=== PATIENT | female | born 1990 | race Caucasian/White ===

== ENCOUNTER 2021-11-09 16:42 | Inpatient (IN) | payer BC ==
[2021-11-09] MEDS ORDERED: DINOPROSTONE 10 MG INSERT.ER VAGINAL ONE (16:59)
[2021-11-09] MEDS ORDERED: BUTORPHANOL 1 MG/ML 1 ML VIAL IV PRN (16:59)
--- NOTE | 2021-11-09 17:46 | P.HPOB ---
History of Present Illness H&P Date: 11/09/21 Chief Complaint: Requested induction of labor This patient is a pleasant 30-year-old 2 para 0 female estimated date of confinement 11/11/2021 estimated gestational age 39-5/7 weeks gestation who is admitted to labor and delivery for two-stage induction of labor secondary to unfavorable cervix at term. Patient's care has been uncomplicated. There was a questionable circumvallate placenta at 20 weeks however this was revisualized per maternal- medicine and did not show this. Patient has been followed with nonstress tests regardless per [facility] recommendations. She's now requesting induction of labor at term. Review of Systems Genitourinary: Reports Menstruation: Reports amenorrhea Past Medical History Past Medical History: No Reported History History of Any Multi-Drug Resistant Organisms: None Reported Additional Past Surgical History / Comment(s): ELECTIVE 01/23/14; BRAIN TUMOR REMOVAL Past Anesthesia/Blood Transfusion Reactions: No Reported Reaction Past Psychological History: No Psychological Hx Reported Smoking Status: Never smoker Past Alcohol Use History: Occasional Past Drug Use History: None Reported - Past Family History Mother Family Medical History: No Reported History Medications and Allergies Home Medications Medication Instructions Recorded Confirmed Type Vit No.179/Iron/Folic 1 each PO DAILY 11/09/21 11/09/21 History [ Tablet] Allergies Allergy/AdvReac Type Severity Reaction Status Date / Time No Known Allergies Allergy Verified 11/09/21 16:59 Exam Vital Signs Temp Pulse Resp BP Pulse Ox 11/09/21 16:59 18 11/09/21 16:58 97.0 F L 103 H 18 130/89 98 Intake and Output 11/09/21 11/09/21 11/09/21 06:59 14:59 22:59 Other: Weight 87.997 kg - OBG Physical Exam Abdomen: bowel sounds normal, no diffuse tenderness, no bruit present, no guarding noted, no hepatomegaly, no splenomegaly, no mass Vulva: both: normal Vagina: normal moisture, no discharge Cervix: no lesion (Cervix is closed and uneffaced.), no discharge Uterus: enlarged (Fundal height 39 cm) Results labs show she is O+, rubella immune, RPR is nonreactive, hepatitis B is negative, HIV is nonreactive, Glucola was normal, group B strep was negative, most recent ultrasound showed estimated weight of 7 lbs. 0 oz. Assessment and Plan Assessment: This is a pleasant 30-year-old 2 para 0 female 39-5/7 weeks gestation who is requesting induction of labor. Plan is Cervidil placement and anticipate vaginal delivery. (1) 39 weeks gestation of Current Visit: Yes Status: Acute Code(s): Z3A.39 - 39 WEEKS GESTATION OF SNOMED Code(s): 79777858 (2) Elective induction of labor planned Current Visit: Yes Status: Acute Code(s): PBD4144 - SNOMED Code(s): 285379498
[2021-11-09] MEDS ORDERED: ONDANSETRON 4 MG/2 ML VIAL IVP PRN (19:25)
[2021-11-09] MEDS ORDERED: ONDANSETRON 4 MG TAB PO PRN (20:18)
[2021-11-10] MEDS: LACTATED RINGERS 1,000 ML IV SCH ×3 (05:00→20:50)
[2021-11-10] MEDS ORDERED: TERBUTALINE 1 MG/ML VIAL SQ PRN (05:04)
[2021-11-10] MEDS ORDERED: CARBOPROST TROMETHAMINE 250 MCG/ML 1 ML AMP IM PRN (05:04)
[2021-11-10] MEDS ORDERED: OXYTOCIN 30 UNITS/500 ML NS 30 UNIT in SALINE 1 500ML.BAG IV SCH ×2 (05:04→20:15)
[2021-11-10] MEDS ORDERED: LIDOCAINE (PF) 10 MG/ML 2 ML VIAL SQ PRN (05:04)
[2021-11-10] MEDS ORDERED: METHYLERGONOVINE 0.2 MG/ML 1 ML AMP IM PRN (05:04)
[2021-11-10] MEDS ORDERED: OXYTOCIN 10 UNIT/ML 1 ML VIAL IM PRN (05:04)
[2021-11-10 05:27] LABS: Basophils % (A) 0 %; Eosinophils # (A) 0.2 k/uL (0-0.7); Eosinophils % (A) 2 %; HCT 37.9 % (34.0-46.0); HGB 12.3 gm/dL (11.4-16.0); Lymphocytes # (A) 2.9 k/uL (1.0-4.8); Lymphocytes % (A) 31 %; MCH 27.4 pg (25.0-35.0); MCHC 32.4 g/dL (31.0-37.0); MCV 84.5 fL (80.0-100.0); Mean Platelet Volume 11.2; Monocytes # (A) 0.5 k/uL (0-1.0); Monocytes % (A) 6 %; Neutrophils # (A) 5.6 k/uL (1.3-7.7); Neutrophils % (A) 60 %; Platelet Count 183 k/uL (150-450); RBC 4.49 m/uL (3.80-5.40); RDW 13.5 % (11.5-15.5); WBC 9.2 k/uL (3.8-10.6)
[2021-11-10 05:59] LABS: Large Platelets Present
--- NOTE | 2021-11-10 05:59 | P.PN ---
Progress Note - Text Progress Note Date: 11/10/21 Cervix is 1-2 cm and thick but soft. Artificial rupture membranes done for clear fluid. heart tones are category 1. Plan now to proceed with Pitocin induction of labor.
[2021-11-10] MEDS ORDERED: fentaNYL (PF) 50 MCG/ML 5 ML AMP ONE (15:54)
[2021-11-10] MEDS ORDERED: ROPIVACAINE 5MG/ML 20ML VIAL ONE (15:54)
[2021-11-10] MEDS ORDERED: SODIUM CHLORIDE 0.9% 100 ML BAG ONE (15:54)
[2021-11-10] MEDS ORDERED: CITRIC ACID-SODIUM CITRATE 15 ML CUP PO ONE (18:53)
--- NOTE | 2021-11-10 19:03 | P.PN ---
Progress Note - Text Progress Note Date: 11/10/21 Patient's heart tones are category 1. head has not progressed beyond 0 station. Cervix is failed to dilate past 4 cm despite adequate labor. Estimated weight is greater than 8 pounds. The patient, I, and her discussed continuing with labor versus delivery by section and they wished to proceed with section. I discussed the surgery and risks and we'll proceed now.
[2021-11-10] MEDS ORDERED: OXYTOCIN 30 UNITS/500 ML NS BAG IV ONE (19:21)
[2021-11-10] MEDS ORDERED: fentaNYL (PF) 50 MCG/ML 2 ML AMP ONE (19:21)
[2021-11-10] MEDS ORDERED: ONDANSETRON 4 MG/2 ML VIAL ONE (19:21)
[2021-11-10] MEDS ORDERED: MORPHINE SULFATE (PF) 0.3 MG/0.3 ML SYR ONE (19:21)
[2021-11-10] MEDS ORDERED: ONDANSETRON 4 MG/2 ML VIAL IVP PRN (20:11)
[2021-11-10] MEDS ORDERED: NALOXONE 0.4 MG/ML 1 ML VIAL IV PRN (20:11)
[2021-11-10] MEDS ORDERED: METOCLOPRAMIDE 5 MG/ML 2 ML VIAL IVP PRN (20:11)
[2021-11-10] MEDS ORDERED: ZOLPIDEM 5 MG TAB PO PRN (20:11)
[2021-11-10] MEDS ORDERED: diphenhydrAMINE 25 MG CAP PO PRN (20:11)
[2021-11-10] MEDS ORDERED: SIMETHICONE 80 MG CHEWABLE PO PRN (20:11)
[2021-11-10] MEDS ORDERED: LANOLIN CREAM 5 GM TUBE TOPICAL PRN (20:11)
[2021-11-10] MEDS ORDERED: diphenhydrAMINE 50 MG/ML 1 ML VIAL IVP PRN (20:11)
[2021-11-10] MEDS ORDERED: HYDROmorphone PCA 10 MG/50 ML BAG IV PRN (20:30)
--- NOTE | 2021-11-10 21:16 | P.OP ---
Date of Procedure: 11/10/21 Preoperative Diagnosis: #1: 39-6/7 week intrauterine . #2: Failure to progress in labor. Postoperative Diagnosis: #1: Same. #2: Large for gestational age. Procedure(s) Performed: Primary low transverse section Anesthesia: epidural Surgeon: Joyb Fishman Pharmacy Student #1: Martha Self Estimated Blood Loss (ml): 600 Pathology: none sent Condition: stable Disposition: floor Indications for Procedure: Please see dictated H&P for intimate details of this patient's admission. Brief summary this is a pleasant 30-year-old 2 para 0 female 39-6/7 weeks gestation admitted last evening for two-stage induction of labor secondary to unfavorable cervix at term. Patient has Cervidil placed this morning she was 1- 2 cm dilated is artificial rupture membranes for clear fluid. Labor is induced with Pitocin per protocol. Patient progresses slowly and gets to approximately 4 cm. head does not descend beyond 0 station and there is failure progress despite adequate labor. At this time I had a discussion with the patient and her and we elected to proceed with section for delivery. Patient understands this procedure and risks and risks of infection, bleeding, possible injury bowel, bladder, vessels, and/or other organs. All the patient's questions are answered and a written consent is obtained. Operative Findings: This is a vigorous viable male infant Apgars 8 and 9 delivery time is 1944 hrs. is 8 lbs. 9 oz. and found to be in occiput transverse presentation. Description of Procedure: This patient has a Hdz catheter placed to straight drain. She is subsequently taken to the operating room where the epidural was dosed up for sufficient level of surgery. With an adequate level of anesthesia she has abdominal prep and drape. Scalpels and taken Pfannenstiel skin incision is made. A second scalpel is taken down the fascia the fascia scored with a knife. Fascial incision extended bilaterally using the Yost scissors. Fascia is dissected off the rectus muscles sharply. Rectus muscles are the peritoneum was identified and entered sharply. Peritoneal incision extended superior and inferior without difficulty. Bladder blade is then placed. Bladder peritoneum was taken sharply off the lower uterine segment. Scalpels and taken low transverse uterine incision is then made. Using a hemostat I enter the uterine cavity bluntly there is loss of clear fluid. This incision is extended bluntly. Infant's head is then guided through the incision and delivered with fundal pressure. Also nares are bulb suctioned. There is a nuchal cord 1 which is reduced. With more fundal pressure we then have delivery the rest of this 's body. This is a vigorous viable male infant Apgars are 8 and 9 delivery time is 1944 hrs. After delivery of the the umbilical cord is doubly clamped and cut appears to be trivascular. The placenta is then manually extracted intact. Uterus is then externalized and uterine incision demarcated with Perez clamps. Uterine incision is then closed using 0 Vicryl running locked fashion 2 layers. Excellent hemostasis is noted. Bladder peritoneum was then reapproximated using a 3-0 Vicryl running fashion. Excess fluid is removed from the abdomen and pelvis. Uterus, tubes, ovaries appear normal for term gestation. Uterus placed back into the abdomen. The parietal peritoneum was then closed using 0 Vicryl running fashion. Rectus muscles are reapproximated in 0 Vicryl interrupted fashion. Fascial incision is then closed using 0 PDS. Fascial incision is intact and hemostatic. Subcutaneous tissues and closed using a 3-0 Vicryl. Skin is and closed using tricia. All counts are correct 3. There are no complications. and mother are taken to her birthing suite in satisfactory condition.
[2021-11-10] MEDS: ACETAMINOPHEN TAB 500 MG TAB PO SCH (23:58)
[2021-11-11] MEDS: IBUPROFEN 600 MG TAB PO SCH ×3 (04:47→14:49)
[2021-11-11] MEDS: LACTATED RINGERS 1,000 ML IV SCH ×2 (05:29→14:49)
[2021-11-11] MEDS: ACETAMINOPHEN TAB 500 MG TAB PO SCH ×4 (05:30→20:50)
--- NOTE | 2021-11-11 05:36 | P.PNOBGPC ---
Subjective - Subjective Patient reports: Reports appetite normal, Reports voiding normally, Reports pain well controlled, Reports ambulating normally : doing well Objective - Vital Signs Latest vital signs: Vital Signs Temp Pulse Resp BP Pulse Ox 11/11/21 05:28 99.2 F 62 16 104/60 97 11/10/21 23:54 98.8 F 75 18 121/70 95 11/10/21 22:30 97.7 F 79 18 120/63 98 11/10/21 22:00 91 18 123/66 97 11/10/21 21:30 80 18 126/61 98 11/10/21 21:15 80 18 100 11/10/21 21:00 81 16 126/77 100 11/10/21 20:45 92 16 123/64 100 11/10/21 20:30 98.7 F 81 18 121/60 100 11/10/21 20:15 97.4 F L 86 18 114/80 100 Intake and Output 11/10/21 11/10/21 11/11/21 14:59 22:59 06:59 Intake Total 29.133 Output Total 1307 Balance -1277.867 Intake: Intake, IV Titration 29.133 Amount Oxytocin 30 Units/500 ml 29.133 Ns 30 unit In Saline 1 500ml.bag @ Per Protocol IV .Q0M [facility] Rx#:[id number] Output: Urine 700 Straight 400 Estimated Blood Loss 600 Output, Quantitative 7 Blood Loss Other: # Voids 2 - Exam Lungs: bilateral: normal Chest: Normal S1, Normal S2 Extremities: Present: normal Abdomen: Present: normal appearance, soft. Absent: distention, tenderness Incision: Present: normal, dry, intact Uterus: Present: normal, firm Assessment and Plan Assessment: Post operative day #1. Patient is resting without new complaints. Vital signs are stable she's afebrile. She had a low-grade temp 99 2. Uterus firm nontender her incision is intact and dry. Patient is having normal lochia. CBC is pending at time of this dictation. My impression this is a normal postoperative course. Plan is to discontinue her catheter, discontinue the ENDOSCOPY TECHNICIAN, check a CBC, encourage ambulation, and allow patient to shower. (1) 39 weeks gestation of Current Visit: Yes Status: Acute Code(s): Z3A.39 - 39 WEEKS GESTATION OF SNOMED Code(s): 81674674 (2) Elective induction of labor planned Current Visit: Yes Status: Acute Code(s): BUL2735 - SNOMED Code(s): 201773376
[2021-11-11] MEDS: KETOROLAC 15 MG/ML 1 ML VIAL IVP SCH ×3 (06:38→17:50)
[2021-11-11 07:24] LABS: Basophils % (A) 0 %; Eosinophils % (A) 0 %; HCT 36.4 % (34.0-46.0); HGB 11.9 gm/dL (11.4-16.0); Lymphocytes # (A) 1.3 k/uL (1.0-4.8); Lymphocytes % (A) 9 %; MCHC 32.8 g/dL (31.0-37.0); MCV 85.4 fL (80.0-100.0); Mean Platelet Volume 11.6; Monocytes # (A) 0.4 k/uL (0-1.0); Monocytes % (A) 2 %; Neutrophils # (A) 13.2 k/uL (1.3-7.7); Neutrophils % (A) 88 %; Platelet Count 134 k/uL (150-450); RBC 4.27 m/uL (3.80-5.40)
[2021-11-11] MEDS: SENNOSIDES-DOCUSATE SODIUM 1 EACH TAB PO SCH ×2 (09:14→19:39)
--- NOTE | 2021-11-11 10:05 | P.PN ---
Progress Note - Text Progress Note Date: 11/11/21 Postop day 1 from under spinal anesthesia with intrathecal morphine given for postop pain management. Patient is doing well. Pain is well controlled. On visual analog scale 3/10 Mild itching present No nausea or vomiting reported. No Headache or weakness and numbness in the legs. No complications from spinal anesthesia.
[2021-11-11 15:42] VITALS: RESP 16
[2021-11-12] MEDS: IBUPROFEN 600 MG TAB PO SCH ×4 (00:01→12:26)
[2021-11-12] MEDS: LACTATED RINGERS 1,000 ML IV SCH ×2 (00:51→06:32)
[2021-11-12] MEDS: KETOROLAC 15 MG/ML 1 ML VIAL IVP SCH ×2 (00:51→08:29)
[2021-11-12] MEDS: ACETAMINOPHEN TAB 500 MG TAB PO SCH ×2 (02:33→09:31)
[2021-11-12 05:39] LABS: Basophils % (A) 0 %; Eosinophils # (A) 0.1 k/uL (0-0.7); Eosinophils % (A) 1 %; HCT 33.9 % (34.0-46.0); HGB 10.9 gm/dL (11.4-16.0); Hypochromasia Slight; Lymphocytes # (A) 1.8 k/uL (1.0-4.8); Lymphocytes % (A) 13 %; MCH 27.9 pg (25.0-35.0); MCHC 32.2 g/dL (31.0-37.0); MCV 86.5 fL (80.0-100.0); Monocytes # (A) 0.4 k/uL (0-1.0); Monocytes % (A) 3 %; Neutrophils # (A) 11.4 k/uL (1.3-7.7); Neutrophils % (A) 82 %; Platelet Count 151 k/uL (150-450); RBC 3.92 m/uL (3.80-5.40); RDW 14.2 % (11.5-15.5); WBC 13.9 k/uL (3.8-10.6)
[2021-11-12 08:28] VITALS: BP 114/64; PULSE 68; TEMP 97.7
[2021-11-12] MEDS: SENNOSIDES-DOCUSATE SODIUM 1 EACH TAB PO SCH (09:32)
--- NOTE | 2021-11-12 11:17 | P.DS ---
Providers Date of admission: 11/09/21 16:42 Expected date of discharge: 11/12/21 Attending physician: Joby Fishman Primary care physician: Stated None Hospital Course: This is a 30-year-old female 2 para 0 at 39-6/7 weeks who presented for Cervidil cervical ripening followed by oxytocin induction of labor on 11/09/2021 and 11/10/2021. Please see history and physical and operative notes for details of patient's admission. She did undergo a primary low transverse section on 11/10/2021 and delivered a viable male with scores of 8 at 1 minute and 9 at 5 minutes and infant weight of 8 lbs. 9 oz. Her po stoperative course has been uncomplicated. She is passing flatus but no bowel movement yet. Her pain is fairly well controlled. She is ambulating. She is breast-feeding. Vital signs are stable. Abdomen is soft with positive bowel sounds 4. Incision is clean dry and intact with tricia in place. Extremities show negative Homans. Impression is status post primary low transverse section postoperative day #2. Plan is to discharge home today. Routine postoperative and instructions are given. Prescriptions have been sent in by Dr. Fishman. Tricia will be removed and Steri-Strips placed prior to discharge. She is instructed to follow up with Dr. Fishman in the office in approximately one week for a postoperative check and 6 weeks for a check. She is advised to call the office if she has any prior to her appointment time. Procedures: Cervidil cervical ripening Oxytocin induction of labor Primary low transverse section for delivery of a viable male infant on 11/10/2021 Patient Condition at Discharge: Stable Plan - Discharge Summary New Discharge Prescriptions: New Ibuprofen [Motrin] 600 mg PO Q6H #40 tab oxyCODONE HCL [OxyIR] 5 mg PO Q4HR PRN #18 tab PRN Reason: Pain No Action Vit No.179/Iron/Folic [ Tablet] 1 each PO DAILY Discharge Medication List Vit No.179/Iron/Folic [ Tablet] 1 each PO DAILY 11/09/21 [History] Ibuprofen [Motrin] 600 mg PO Q6H #40 tab 11/11/21 [Rx] oxyCODONE HCL [OxyIR] 5 mg PO Q4HR PRN #18 tab 11/11/21 [Rx] Follow up Appointment(s)/Referral(s): Joby Fishman MD [STAFF PHYSICIAN] - 12/23/21 9:30 am (Post OP appointment 11/18/21 @8:30 Am) Patient Instructions/Handouts: (DC) Activity/Diet/Wound Care/Special Instructions: No heavy lifting or strenuous activity for 6 weeks. No intercourse or anything per vagina for 6 weeks. Please call if any fever, chills, excessive vaginal bleeding, and/or abdominal pain. Discharge Disposition: HOME SELF-CARE
== END 2021-11-12 13:20 | disposition home or self-care (01) | DRG 787 ==
LOC: 4FBP 16:42
PROVIDERS: ADMIT Obstetrics & Gynecology; ATTEND Obstetrics & Gynecology
PROC: 10D00Z1 Extraction of Products of Conception, Low, Open Approach (ICD-10-PCS; 2021-11-10)
PROC: 4A0HXCZ Measurement of Products of Conception, Cardiac Rate, External Approach (ICD-10-PCS; 2021-11-10)
PROC: 10907ZC Drainage of Amniotic Fluid, Therapeutic from Products of Conception, Via Natural or Artificial Opening (ICD-10-PCS; 2021-11-10)
PROC: 4A0HXCZ Measurement of Products of Conception, Cardiac Rate, External Approach (ICD-10-PCS; 2021-11-10)
PROC: 3E0P7VZ Introduction of Hormone into Female Reproductive, Via Natural or Artificial Opening (ICD-10-PCS; 2021-11-10)
PROC: 3E033VJ Introduction of Other Hormone into Peripheral Vein, Percutaneous Approach (ICD-10-PCS; principal; 2021-11-10 06:15)
DX: O32.2XX0 Maternal care for transverse and oblique lie, not applicable or unspecified (principal); O86.4 Pyrexia of unknown origin following delivery; O69.81X0 Labor and delivery complicated by cord around neck, without compression, not applicable or unspecified; O99.73 Diseases of the skin and subcutaneous tissue complicating the puerperium; L29.9 Pruritus, unspecified; O36.63X0 Maternal care for excessive fetal growth, third trimester, not applicable or unspecified; O62.0 Primary inadequate contractions; Z37.0 Single live birth; Z3A.39 39 weeks gestation of pregnancy; O34.43 Maternal care for other abnormalities of cervix, third trimester
CPT/HCPCS: 85025; 86850; 86900; 86901

== ENCOUNTER 2022-12-14 17:45 | Emergency (ER) | payer BC ==
[2022-12-14 18:23] VITALS: RESP 18
[2022-12-14 19:38] LABS: HCT 40.8 % (34.0-46.0); HGB 13.9 gm/dL (11.4-16.0); MCH 28.6 pg (25.0-35.0); MCV 84.1 fL (80.0-100.0); Platelet Count 198 k/uL (150-450); RBC 4.85 m/uL (3.80-5.40); RDW 12.9 % (11.5-15.5); WBC 7.1 k/uL (3.8-10.6)
[2022-12-14 19:48] LABS: African American GFR (CKD) >90 (>60 ml/min/1.73 sqM); Anion Gap 10 mmol/L; Blood Urea Nitrogen 9 mg/dL (7-17); Calcium 9.4 mg/dL (8.4-10.2); Carbon Dioxide 24 mmol/L (22-30); Chloride 103 mmol/L (98-107); Glucose 99 mg/dL (74-99); Non-African American GFR(CKD) >90 (>60 ml/min/1.73 sqM); Potassium 3.7 mmol/L (3.5-5.1); Sodium 137 mmol/L (137-145)
[2022-12-14 19:49] LABS: INR 0.9 (<1.2); Partial Thromboplastin Time 26.7 sec (22.0-30.0); Prothrombin Time 10.1 sec (9.0-12.0)
--- NOTE | 2022-12-14 20:08 | US ---
EXAMINATION TYPE: Transabdominal DATE OF EXAM: 12/14/2022 8:01 PM COMPARISON: NONE CLINICAL INDICATION: Female, 31 years old with history of vaginal bleeding. approx 8 w preg; spotting off and on for over a week. EXAM PERFORMED: Transabdominal (TA) EXAM MEASUREMENTS: GESTATIONAL AGE / DATING Physician Established: Not yet established Dates by LMP: LMP unknown Dates by First Scan: No previous this is first scan Dates by Current Scan for: (6 weeks/4 days) EDC: 08/05/2023 MATERNAL ANATOMY Uterus: 8.6 x 8.4 x 5.9cm Right Ovary: 3.6 x 3.0 x 1.7cm Left Ovary: 2.8 x 1.8 x 1.7cm Post CDS / Adnexa: wnl Presence of free fluid: No Presence of corpus luteal cyst: No Presence of subchorionic bleed: No GESTATION / SURVEY CRL: 1.03cm (7 weeks/1 days) MSD: 1.64 (6 weeks/0 days) Yolk Sac (normal less than 6mm): 3.2mm Heart Rate: 162 bpm Rhythm: Normal IUP: Viable IUP Date of LMP: Unknown Beta HcG (if available): Not available at this time Viable IUP measuring 6 weeks 4 days IMPRESSION: Single live intrauterine gestation with estimated gestational age of 6 weeks 4 days and estimated due date of 08/05/2023.
[2022-12-14 20:38] LABS: HCG,Quantitative Serum 29164.8 mIU/mL
--- NOTE | 2022-12-14 21:18 | ED ---
General Adult HPI - General Chief complaint: Vaginal Bleeding Stated complaint: bleeding Time Seen by Provider: 12/14/22 18:28 Source: patient, RN notes reviewed, old records reviewed Mode of arrival: ambulatory Limitations: no limitations - History of Present Illness Initial comments: Patient is a 31-year-old female who presents emergency Department complaining of urinary bleeding in the setting of . Unknown how the patient as well as as she has not yet had a period since her last due to breast- feeding. Patient is A1. Declines any analgesia medications as she has no abdominal pain at this time. She has noticed 3 weeks of intermittent spotting with occasional clot she thinks. No significant pain. Has been unable to follow up with an FITTING ROOM ASSOCIATE at this time. Presents for further evaluation. Denies any other symptoms and chest pain, shortness breath, lightheadedness, weakness. No urinary complaints. - Related Data Home Medications Medication Instructions Recorded Confirmed Vit No.179/Iron/Folic 1 each PO DAILY 11/09/21 11/09/21 [ Tablet] Previous Rx's Medication Instructions Recorded Ibuprofen [Motrin] 600 mg PO Q6H #40 tab 11/11/21 oxyCODONE HCL [OxyIR] 5 mg PO Q4HR PRN #18 tab 11/11/21 Allergies Allergy/AdvReac Type Severity Reaction Status Date / Time No Known Allergies Allergy Verified 12/14/22 18:17 Review of Systems ROS Statement: Those systems with pertinent positive or pertinent negative responses have been documented in the HPI. Review of Systems: CONST: Denies fever EYES: Denies blurry vision ENT: Denies nasal congestion C/V: Denies Chest pain RESP: Denies shortness of breath GI: Denies abdominal pain : Endorses vaginal spotting in setting of SKIN: Denies rash. MSK: Denies joint pain. NEURO: Denies headache ROS Other: All systems not noted in ROS Statement are negative. Past Medical History Past Medical History: No Reported History History of Any Multi-Drug Resistant Organisms: None Reported Additional Past Surgical History / Comment(s): ELECTIVE 01/23/14; BRAIN TUMOR REMOVAL Past Anesthesia/Blood Transfusion Reactions: No Reported Reaction Past Psychological History: No Psychological Hx Reported Smoking Status: Never smoker Past Alcohol Use History: Occasional Past Drug Use History: None Reported - Past Family History Mother Family Medical History: No Reported History General Exam - General Exam Comments Initial Comments: General: Appears in no acute distress. HEAD: Normal with no signs of head trauma. EYES: PERRLA, EOMI, conjunctiva normal, no discharge. ENT: Hearing grossly intact, normal oropharynx. RESPIRATORY: Clear breath sounds bilaterally. No wheezes, rales, or rhonchi. C/V: Regular rate and rhythm. S1 and S2 auscultated, no edema, peripheral pul ses 2+ and intact throughout ABD: Abd is soft, nontender, nondistended EXT: no obvious deformity SKIN: No rashes or lesions observed on exposed skin. NEURO: Alert and oriented 4. Limitations: no limitations Course Vital Signs 12/14/22 12/14/22 12/14/22 18:18 20:05 21:26 Temperature 98 F 98.0 F Pulse Rate 69 70 71 Respiratory 18 18 18 Rate Blood Pressure 126/67 122/65 102/60 O2 Sat by Pulse 100 100 99 Oximetry Medical Decision Making - Medical Decision Making Was pt. sent in by a medical professional or institution (, PA, CENTRAL STORES ATTENDANT, urgent care, hospital, or halfway...) When possible be specific @ -No Did you speak to anyone other than the patient for history (EMS, parent, family, police, friend...)? What history was obtained from this source @ -No Did you review nursing and triage notes (agree or disagree)? Why? @ -I reviewed and agree with nursing and triage notes Were old charts reviewed (outside hosp., previous admission, EMS record, old EKG, old radiological studies, urgent care reports/EKG's, halfway records)? Report findings @ -No old charts were reviewed Differential Diagnosis (chest pain, altered mental status, abdominal pain women, abdominal pain men, vaginal bleeding, weakness, fever, dyspnea, syncope, headache, dizziness, GI bleed, back pain, seizure, CVA, palpatations, mental health, musculoskeletal)? @ -Dysfunctional uterine bleeding, , threatened miscarriage, miscarriage. This list is not all inclusive. EKG interpreted by me (3pts min.). @ -None done X-rays interpreted by me (1pt min.). @ -None done CT interpreted by me (1pt min.). @ -None done U/S interpreted by me (1pt. min.). @ -Ultrasound reveals a 6 week 4 day old intrauterine gestation. What testing was considered but not performed or refused? (CT, X-rays, U/S, labs)? Why? @ -None What meds were considered but not given or refused? Why? @ -None Did you discuss the management of the patient with other professionals (professionals i.e. , PA, CENTRAL STORES ATTENDANT, lab, RT, psych nurse, addiction social worker, salesforce developer, teacher, commissioned fire officer, special education case manager)? Give summary @ -No Was smoking cessation discussed for >3mins.? @ -No Was critical care preformed (if so, how long)? @ -No Were there social determinants of health that impacted care today? How? (Homelessness, low income, unemployed, alcoholism, drug addiction, transportation, low edu. Level, literacy, decrease access to med. care, fpc, r ehab)? @ -No Was there de-escalation of care discussed even if they declined (Discuss DNR or withdrawal of care, Hospice)? DNR status @ -No What co-morbidities impacted this encounter? (DM, HTN, Smoking, COPD, CAD, Cancer, CVA, ARF, Chemo, Hep., AIDS, mental health diagnosis, sleep apnea, morbid obesity)? @ -None Was patient admitted / discharged? Hospital course, mention meds given and route, prescriptions, significant lab abnormalities, going to OR and other pertinent info. @ -Based on the patient's presentation and physical exam, presents in the setting of vaginal bleeding and . We will obtain abdominal laboratory studies as well as beta hCG, type and screen. Some also be obtained. Patient in agreement this plan. In no distress at this time. Vital signs within acceptable limits. Labs remarkable for typeO+ blood, quantitative beta hCG measuring 29,000, with the remainder of the labs within acceptable limits. Ultrasound shows a definit darwin IUP measuring at 6 weeks and 4 days. I updated The patient. She expressed understanding. Diagnosis is threatened miscarriage in the setting of . Recommend a follow-up with FITTING ROOM ASSOCIATE. Josh calloway was in agreement this plan. She has been taking vitamins. I instructed the patient to follow up with their PCP in the next 1-3 days. I explained that the patient should return to the emergency department if they experience any worsening symptoms. Strict return precautions were discussed with the patient. The patient expressed understanding of these instructions. I answe red all questions that the patient had. The patient was discharged home in good condition with their prescriptions and follow up information. Undiagnosed new problem with uncertain prognosis? @ -No Drug Therapy requiring intensive monitoring for toxicity (Heparin, Nitro, Insulin, Cardizem)? @ -No Were any procedures done? @ -No Diagnosis/symptom? @ -Threatened miscarriage, Acute, or Chronic, or Acute on Chronic? @ -Acute Uncomplicated (without systemic symptoms) or Complicated (systemic symptoms)? @ -Uncomplicated Side effects of treatment? @ -No Exacerbation, Progression, or Severe Exacerbation? @ -No Poses a threat to life or bodily function? How? (Chest pain, USA, ME, pneumonia, PE, COPD, DKA, ARF, appy, cholecystitis, CVA, Diverticulitis, Homicidal, Suic idal, threat to staff... and all critical care pts) @ -No - Lab Data Result diagrams: 12/14/22 19:20 12/14/22 19:20 Lab Results 12/14/22 12/14/22 12/14/22 Range/Units 19:15 19:20 19:20 WBC 7.1 (3.8-10.6) k/uL RBC 4.85 (3.80-5.40) m/uL Hgb 13.9 (11.4-16.0) gm/dL Hct 40.8 (34.0-46.0) % MCV 84.1 (80.0-100.0) fL MCH 28.6 (25.0-35.0) pg MCHC 34.0 (31.0-37.0) g/dL RDW 12.9 (11.5-15.5) % Plt Count 198 (150-450) k/uL MPV 9.0 PT 10.1 (9.0-12.0) sec INR 0.9 (<1.2) APTT 26.7 (22.0-30.0) sec Sodium (137-145) mmol/L Potassium (3.5-5.1) mmol/L Chloride (98-107) mmol/L Carbon Dioxide (22-30) mmol/L Anion Gap mmol/L BUN (7-17) mg/dL Creatinine (0.52-1.04) mg/dL Est GFR (CKD-EPI)AfAm (>60 ml/min/1.73 sqM) Est GFR (CKD-EPI)NonAf (>60 ml/min/1.73 sqM) Glucose (74-99) mg/dL Calcium (8.4-10.2) mg/dL HCG, Quant mIU/mL Blood Type O Positive Blood Type Recheck O Pos Bld Type Recheck Status No Antibody Screen NEGATIVE Spec Expiration Date 12/17/2022 - 231412/14/22 Range/Units 19:20 WBC (3.8-10.6) k/uL RBC (3.80-5.40) m/uL Hgb (11.4-16.0) gm/dL Hct (34.0-46.0) % MCV (80.0-100.0) fL MCH (25.0-35.0) pg MCHC (31.0-37.0) g/dL RDW (11.5-15.5) % Plt Count (150-450) k/uL MPV PT (9.0-12.0) sec INR (<1.2) APTT (22.0-30.0) sec Sodium 137 (137-145) mmol/L Potassium 3.7 (3.5-5.1) mmol/L Chloride 103 (98-107) mmol/L Carbon Dioxide 24 (22-30) mmol/L Anion Gap 10 mmol/L BUN 9 (7-17) mg/dL Creatinine 0.53 (0.52-1.04) mg/dL Est GFR (CKD-EPI)AfAm >90 (>60 ml/min/1.73 sqM) Est GFR (CKD-EPI)NonAf >90 (>60 ml/min/1.73 sqM) Glucose 99 (74-99) mg/dL Calcium 9.4 (8.4-10.2) mg/dL HCG, Quant 82535.8 mIU/mL Blood Type Blood Type Recheck Bld Type Recheck Status Antibody Screen Spec Expiration Date Disposition Clinical Impression: , Threatened miscarriage Disposition: HOME SELF-CARE Condition: Good Instructions (If sedation given, give patient instructions): Threatened Miscarriage (ED) Is patient prescribed a controlled substance at d/c from ED?: No Referrals: None,Stated [Primary Care Provider] - 1-2 days Houston Wilkerson MD [STAFF PHYSICIAN] - 1-2 days Time of Disposition: 21:10
[2022-12-14 21:29] VITALS: BP 102/60; PULSE 71; TEMP 98
== END 2022-12-14 21:34 | disposition home or self-care (01) ==
LOC: EC 17:45
DX: O20.0 Threatened abortion (principal); Z3A.01 Less than 8 weeks gestation of pregnancy
CPT/HCPCS: 36415; 76801; 80048; 84702; 85027; 85610; 85730; 86850; 86900; 86901; 99284

== ENCOUNTER 2023-06-20 17:56 | Emergency (ER) | payer BC ==
--- NOTE | 2023-06-20 18:13 | ED ---
Fever HPI - General Source: patient, family, RN notes reviewed Mode of arrival: ambulatory Limitations: no limitations <Deb Garay - Last Filed: 06/20/23 18:12> - General Source: RN notes reviewed, old records reviewed Mode of arrival: ambulatory Limitations: no limitations - History of Present Illness MD Complaint: fever, malaise -: days(s) Temperature Source: subjective Context: sick contacts Associated Symptoms: denies other symptoms Treatments Prior to Arrival: none <Bishnu Johnson - Last Filed: 06/28/23 01:38> - General Stated Complaint: Fever Time Seen by Provider: 06/20/23 18:12 - History of Present Illness Initial Comments: Quick note: Patient is a 32-year-old female presented to ER with a chief complaint of fever. Patient is also . She states for the past 2 days she has been experiencing cough, congestion and fever she been taking [id number] Tylenol without relief of fever. Will be instructed her to come here for fever control and fluids. Patient reports son recently diagnosed with influenza A. (Deb Garay) This is a 32-year-old female to the ER for evaluation of fever in . Patient does have son who was recently diagnosed with influenza (Bishnu Johnson) - Related Data Home Medications Medication Instructions Recorded Confirmed Vit No.179/Iron/Folic 1 each PO DAILY 11/09/21 11/09/21 [ Tablet] Previous Rx's Medication Instructions Recorded Ibuprofen [Motrin] 600 mg PO Q6H #40 tab 11/11/21 oxyCODONE HCL [OxyIR] 5 mg PO Q4HR PRN #18 tab 11/11/21 Allergies Allergy/AdvReac Type Severity Reaction Status Date / Time No Known Allergies Allergy Verified 06/20/23 18:33 Review of Systems ROS Other: All systems not noted in ROS Statement are negative. <Deb Garay - Last Filed: 06/20/23 18:12> ROS Other: All systems not noted in ROS Statement are negative. <Bishnu Johnson - Last Filed: 06/28/23 01:38> ROS Statement: Those systems with pertinent positive or pertinent negative responses have been documented in the HPI. Past Medical History Past Medical History: No Reported History History of Any Multi-Drug Resistant Organisms: None Reported Additional Past Surgical History / Comment(s): ELECTIVE 01/23/14; BRAIN TUMOR REMOVAL Past Anesthesia/Blood Transfusion Reactions: No Reported Reaction Past Psychological History: No Psychological Hx Reported Smoking Status: Never smoker Past Alcohol Use History: Occasional Past Drug Use History: None Reported - Past Family History Mother Family Medical History: No Reported History <Deb Garay - Last Filed: 06/20/23 18:12> General Exam <Deb Garay - Last Filed: 06/20/23 18:12> General appearance: alert, in no apparent distress Head exam: Present: atraumatic, normocephalic, normal inspection Eye exam: Present: normal appearance, PERRL, EOMI. Absent: scleral icterus, conjunctival injection, periorbital swelling ENT exam: Present: normal exam, mucous membranes moist Neck exam: Present: normal inspection. Absent: tenderness, meningismus, lymphadenopathy Respiratory exam: Present: normal lung sounds bilaterally. Absent: respiratory distress, wheezes, rales, rhonchi, stridor Cardiovascular Exam: Present: regular rate, normal rhythm, normal heart sounds. Absent: systolic murmur, diastolic murmur, rubs, gallop, clicks GI/Abdominal exam: Present: soft, normal bowel sounds. Absent: distended, tenderness, guarding, rebound, rigid Extremities exam: Present: normal inspection, full ROM, normal capillary refill. Absent: tenderness, pedal edema, joint swelling, calf tenderness Back exam: Present: normal inspection Neurological exam: Present: alert, oriented X3, CN II-XII intact Psychiatric exam: Present: normal affect, normal mood Skin exam: Present: warm, dry, intact, normal color. Absent: rash <Bishnu Johnson - Last Filed: 06/28/23 01:38> - General Exam Comments Initial Comments: Visual Physical Exam Vital signs reviewed General: Well-appearing, nontoxic, no acute distress. Head: Normocephalic, atraumatic Eyes: PERRLA, EOMI ENT: Airway patent Chest: Nonlabored breathing Skin: No visual rash, normal skin tone Neuro: Alert and oriented 3 Musculoskeletal: No gross abnormalities (Deb Garay) Course <Bishnu Johnson - Last Filed: 06/28/23 01:38> Vital Signs 06/20/23 06/20/23 18:28 20:39 Temperature 99.6 F 99.4 F Pulse Rate 101 H 87 Respiratory 18 18 Rate Blood Pressure 100/63 105/63 O2 Sat by Pulse 95 97 Oximetry - Reevaluation(s) Reevaluation #1: Medical records reviewed (Bishnu Johnson) Reevaluation #2: Patient symptoms improved (Bishnu Johnson) Reevaluation #3: Patient informed of results and questions answered (Bishnu Johnson) Reevaluation #4: Was pt. sent in by a medical professional or institution ([facility], ARCHITECT INTERN, urgent care, hospital, or [facility]...) When possible be specific @ -no Did you speak to anyone other than the patient for history (EMS, parent, family, police, friend...)? What history was obtained from this source @ -no Did you review nursing and triage notes (agree or disagree)? Why? @ -agree Are old charts reviewed (outside hosp., previous admission, EMS record, old EKG, old radiological studies, urgent care reports/EKG's, [facility] records)? Report findings @ -yes Differential Diagnosis (chest pain, altered mental status, abdominal pain women, abdominal pain men, vaginal bleeding, weakness, fever, dyspnea, syncope, headac he, dizziness, GI bleed, back pain, seizure, CVA, palpatations, mental health, musculoskeletal)? @ -prior EKG interpreted by me (3pts min.). @ -yes X-rays interpreted by me (1pt min.). @ -no CT interpreted by me (1pt min.). @ -no U/S interpreted by me (1pt. min.). @ -no What testing was considered but not performed or refused? (CT, X-rays, U/S, labs)? Why? @ -none What meds were considered but not given or refused? Why? @ -none Did you discuss the management of the patient with other professionals (professionals i.e. [facility], ARCHITECT INTERN, lab, RT, psych nurse, social sciences research scientist, correctional program specialist, teacher, medical laboratory technical officer, rn field case manager)? Give summary @ -no Was smoking cessation discussed for >3mins.? @ -no Was critical care preformed (if so, how long)? @ -no Were there social determinants of health that impacted care today? How? (Homelessness, low income, unemployed, alcoholism, drug addiction, transportation, low edu. Level, literacy, decrease access to med. care, [facility], rehab)? @ -none Was there de-escalation of care discussed even if they declined (Discuss DNR or withdrawal of care, Hospice)? DNR status @ -no What co-morbidities impacted this encounter? (DM, HTN, Smoking, COPD, CAD, Cancer, CVA, ARF, Chemo, Hep., AIDS, mental health diagnosis, sleep apnea, morbid obesity)? @ -none Was patient admitted / discharged? Hospital course, mention meds given and route, prescriptions, significant lab abnormalities, going to OR and other pertinent info. @ - 32 female to ER for evaluation of fever unknown viral infection. Patient has no acute distress here in the ER feels well can be discharged home Discharge Undiagnosed new problem with uncertain prognosis? @ -no Drug Therapy requiring intensive monitoring for toxicity (Heparin, Nitro, Insulin, Cardizem)? @ -no Were any procedures done? @ -no Diagnosis/symptom? @ -Fever and influenza Acute, or Chronic, or Acute on Chronic? @ -Acute Uncomplicated (without systemic symptoms) or Complicated (systemic symptoms)? @ -Complicated Side effects of treatment? @ -no Exacerbation, Progression, or Severe Exacerbation? @ -exacerbation Poses a threat to life or bodily function? How? (Chest pain, USA, NM, pneumonia, PE, COPD, DKA, ARF, appy, cholecystitis, CVA, Diverticulitis, Homicidal, Suicidal, threat to staff... and all critical care pts) @ -yes with significant fever in (Bishnu Johnson) Reevaluation #5: Differential Fever: Pneumonia, viral URI, endocarditis, myocarditis, pericarditis, otitis, sinusitis, peritonsillar Abscess, retropharyngeal Abscess, epiglottitis, benito tonitis, appendicitis, Mine cystitis, diverticulitis, hepatitis, colitis, UTI, PID, TOA, pyelonephritis, prostatitis, epididymitis, meningitis, encephalitis, pulmonary embolism, CVA, thyroid storm, pancreatitis, adrenal crisis, cavernous sinus thrombosis, this is not meant to be an all-inclusive list. (Roskopp,Bishnu B) Medical Decision Making <Deb Garay - Last Filed: 06/20/23 18:12> <Bishnu Johnson - Last Filed: 06/28/23 01:38> - Medical Decision Making I performed the quick note portion of this chart. Electronically signed by Deb Garay PA-C (Deb Garay) 32 female to ER for evaluation of fever unknown viral infection. Patient has no acute distress here in the ER feels well can be discharged home (Bishnu Johnson) - Lab Data Lab Results 06/20/23 06/20/23 Range/Units 18:41 18:41 Urine Color Yellow Urine Appearance Cloudy H (Clear) Urine pH 6.0 (5.0-8.0) Ur Specific [place] 1.024 (1.001-1.035) Urine Protein 1+ H (Negative) Urine Glucose (UA) Negative (Negative) Urine Ketones Trace H (Negative) Urine Blood Negative (Negative) Urine Nitrite Negative (Negative) Urine Bilirubin Negative (Negative) Urine Urobilinogen 2.0 (<2.0) mg/dL Ur Leukocyte Esterase Small H (Negative) Urine RBC 2 (0-5) /hpf Urine WBC 4 (0-5) /hpf Ur Squamous Epith Cells 5 H (0-4) /hpf Urine Bacteria Many H (None) /hpf Urine Mucus Many H (None) /hpf Influenza Type A (PCR) Detected A (Not Detectd) Influenza Type B (PCR) Not Detected (Not Detectd) RSV (PCR) Not Detected (Not Detectd) SARS-CoV-2 (PCR) Not Detected (Not Detectd) Disposition <Deb Garay - Last Filed: 06/20/23 18:12> Is patient prescribed a controlled substance at d/c from ED?: No Time of Disposition: 20:30 <Bishnu Johnson - Last Filed: 06/28/23 01:38> Clinical Impression: Fever, Viral infection, Influenza Disposition: HOME SELF-CARE Condition: Good Instructions (If sedation given, give patient instructions): Fever in Adults (ED), Influenza (ED) Referrals: None,Stated [Primary Care Provider] - 1-2 days
[2023-06-20 19:01] VITALS: RESP 18
[2023-06-20 19:20] LABS: Appearance,Urine Cloudy (Clear); Bacteria,Urine Many /hpf; Bilirubin,Urine Negative (Negative); Blood,Urine Negative (Negative); Color,Urine Yellow; Glucose,Urine (UA) Negative (Negative); Ketones,Urine Trace (Negative); Leukocyte Esterase,Urine Small (Negative); Mucus,Urine Many /hpf; Nitrite,Urine Negative (Negative); Protein,Urine 1+ (Negative); RBC,Urine 2 /hpf (0-5); Specific Gravity,Urine 1.024 (1.001-1.035); Squamous Epithelial Cell,Urine 5 /hpf (0-4); WBC,Urine 4 /hpf (0-5)
[2023-06-20 20:58] VITALS: BP 105/63; PULSE 87; TEMP 99.4
== END 2023-06-20 20:39 | disposition home or self-care (01) ==
LOC: EC 17:56
DX: J10.1 Influenza due to other identified influenza virus with other respiratory manifestations (principal); B34.9 Viral infection, unspecified; Z20.822 Contact with and (suspected) exposure to COVID-19
CPT/HCPCS: 81001; 87636; 99284